=== PATIENT | female | born 1985 | race African-American/Black ===

== ENCOUNTER 2019-06-01 21:45 | Emergency (ER) | payer SELFPAY ==
[~2019-06-01] VITALS: Ht 170.2 cm; Wt 77.4 kg
[2019-06-01 22:26] LABS: HEMATOCRIT 40.9 % (37.0-47.0); HEMOGLOBIN 13.5 g/dl (12.0-16.0); IMMATURE GRANULOCYTES 0.3 % (0.0-5.0); MEAN CELL VOLUME 90.3 fL CALC (80.0-100.0); MEAN CORPUSCULAR HGB 29.8 pG CALC (26.0-32.0); NEUT# 2.99 thou/uL (2.00-7.15); RED BLOOD COUNT 4.53 mill/uL (4.20-5.60); RED CELL DISTRI WIDTH 13.6 % (11.5-15.5)
[2019-06-01] MEDS ORDERED: ESTERIFIED ESTROGENS PO (22:29)
[2019-06-01 23:45] VITALS: BP 138/86
[2019-06-02] MEDS ORDERED: BIKTARVY 50-2001 TAB PO (00:12)
== END 2019-06-01 23:45 | disposition home or self-care (01) | DRG 866 ==
LOC: ED 21:45
PROVIDERS: Family Medicine
DX: B34.9 Viral infection, unspecified (principal); F17.200 Nicotine dependence, unspecified, uncomplicated